=== PATIENT | male | born 1945 | race Two or more races ===

== ENCOUNTER 2021-07-08 12:29 | Emergency (ER) | payer OTHER ==
[~2021-07-08] VITALS: Ht 180.3 cm; Wt 97.5 kg
[2021-07-08] MEDS ORDERED: CARDURA XL4 MG PO (13:07)
[2021-07-08] MEDS ORDERED: DOXAZOSIN MESYLA2 MG PO (13:07)
[2021-07-08] MEDS ORDERED: BYSTOLIC20 MG PO (13:08)
== END 2021-07-08 13:15 | disposition home or self-care (01) ==
LOC: ER 12:29
DX: B34.9 Viral infection, unspecified (principal); R05.9 Cough, unspecified; R09.81 Nasal congestion

== ENCOUNTER 2024-10-14 10:26 | Outpatient (CLI) | payer OTHER ==
[~2024-10-14 10:26] MED LIST: BYSTOLIC20 MG PO; CARDURA XL4 MG PO; DOXAZOSIN MESYLA2 MG PO
== END 2024-10-14 10:30 | disposition home or self-care (01) ==
LOC: NUCLEAR 10:26
DX: I11.9 Hypertensive heart disease without heart failure (principal); I70.213 Atherosclerosis of native arteries of extremities with intermittent claudication, bilateral legs

== ENCOUNTER 2025-04-14 13:57 | Outpatient (CLI) | payer OTHER | END 2025-04-14 14:02 | disposition home or self-care (01) | LOC: RAD 13:57 | DX: M16.0 Bilateral primary osteoarthritis of hip (principal) ==